=== PATIENT | male | born 1960 | race Caucasian/White ===

== ENCOUNTER 2019-01-30 11:05 | Emergency (ER) | payer BC ==
--- OUTSIDE RECORDS SUMMARY | 2019-01-30 11:23 | XMS REPORT | Clinical Summary ---
:1960 Author Organization [facility] Address [address] [place] [address] Care Team Providers Name Role Phone Asked, No Pcp Primary Care Provider Unavailable Allergies No Known Allergies Medications Medication Sig Dispensed Refills Start Date End Date Status metoprolol succinate Take 25 mg by 0 Active XL (TOPROL-XL) 25 mg mouth 2 (two) 24 hr tablet times a day. aspirin (ECOTRIN) 81 Take 81 mg by 0 Active MG enteric coated mouth daily. tablet lisinopril Take 5 mg by mouth 0 Active (PRINIVIL,ZESTRIL) 5 daily. mg tablet atorvastatin Take 80 mg by 0 Active (LIPITOR) 80 MG mouth nightly. tablet levothyroxine Take 50 mcg by 0 Active (SYNTHROID, LEVOXYL) mouth every 50 mcg tablet morning. multivitamin Take 1 tablet by 0 Active (THERAGRAN) tablet mouth daily. fluticasone-vilanter Inhale 1 0 Active ol (BREO ELLIPTA) inhalations daily. 200-25 mcg/dose blister with device powder for inhalation ticagrelor Take 1 tablet (90 60 tablet 0 02/14/2018 03/16/2018 (BRILINTA) 90 mg mg total) by mouth tablet 2 (two) times a day for 30 days. Active Problems Problem Noted Date Coronary artery disease 02/13/2018 Encounters Date Type Specialty Care Team Description 02/13/2018 Surgery Procedural Robson Bauman Cv left heart cath w Cardiology MD Regino lv gram cors [90916 (CPT)] 02/13/2018 - Hospital Encounter Cardiology Robson Bauman Coronary artery 02/14/2018 MD Regino disease involving [place] coronary artery of [place] heart with unstable angina pectoris (Primary Dx) after 01/29/2018 Social History Tobacco Use Types Packs/Day Years Used Date Former Smoker Smokeless Tobacco: Former User Comments: Quit 20 years ago Alcohol Use Drinks/Week oz/Week Comments Yes socially Sex Assigned at Date Recorded Not on file Job Start Date Occupation Industry Not on file Not on file Not on file Travel History Travel Start Travel End No recent travel history available. Last Filed Vital Signs Vital Sign Reading Time Taken Blood Pressure 136/80 02/14/2018 12:33 PM CDT Pulse 76 02/14/2018 12:33 PM CDT Temperature 36.6 C (97.8 F) 02/14/2018 12:33 PM CDT Respiratory Rate 18 02/14/2018 12:33 PM CDT Oxygen Saturation 97% 02/14/2018 12:33 PM CDT Inhaled Oxygen Concentration - - Weight 98 kg (216 lb) 02/14/2018 6:23 AM CDT Height 182.9 cm (6') 02/13/2018 7:35 AM CDT Body Mass Index 29.29 02/14/2018 6:23 AM CDT Plan of Treatment Not on file Implants Implanted Type Area Automatic Grinder Operator Device Shelf Model / Identifier Expiration Serial / Date Lot Stent System 3.5 X 12mm Resolute [place] [facility] Coronary - [id number] Coronary N/A: N/A [employer] (RIS) [facility] - [id number] / Implanted: 02/13/2018 (Quantity not on file) Stents CARDIAC RYHTYM / MGMT Procedures Procedure Name Priority Date/Time Associated Comments Diagnosis ZZESTIMATED GFR Routine 02/14/2018 2:32 Results for this AM CDT procedure are in the results section. BASIC METABOLIC PANEL Routine 02/14/2018 2:32 Results for this AM CDT procedure are in the results section. HC COMPLETE BLD COUNT Routine 02/14/2018 1:34 Results for this W/AUTO DIFF AM CDT procedure are in the results section. ECG PRE/POST OP STAT 02/13/2018 11:37 Results for this AM CDT procedure are in the results section. CV LEFT INTERNAL Routine 02/13/2018 10:42 Results for this MAMMARY GRAFT AM CDT procedure are in the results section. CV BYPASS GRAFT LEFT Routine 02/13/2018 10:42 Results for this HEART AM CDT procedure are in the results section. CV PCI STENT Routine 02/13/2018 10:42 Results for this AM CDT procedure are in the results section. CV LEFT HEART CATH LV Routine 02/13/2018 10:42 Results for this GRAM WITH CORS AM CDT procedure are in the results section. ECG PRE/POST OP Routine 02/13/2018 8:07 Results for this AM CDT procedure are in the results section. ZZESTIMATED GFR Routine 02/13/2018 7:20 Results for this AM CDT procedure are in the results section. HC COMPLETE BLD COUNT Routine 02/13/2018 7:20 Results for this W/AUTO DIFF AM CDT procedure are in the results section. BASIC METABOLIC PANEL Routine 02/13/2018 7:20 Results for this AM CDT procedure are in the results section. after 01/29/2018 Results Estimated GFR (02/14/2018 2:32 AM CDT)Only the most recent of2 resultswithin the time period is included. GFR Non Af Amer 87 mL/min/1.73 m2 [facility] DEPARTMENT OF PATHOLOGY AND GENOMIC MEDICINE GFR Af Amer >90 mL/min/1.73 m2 [facility] DEPARTMENT OF Comment: PATHOLOGY AND GENOMIC Chronic kidney disease: <60 mL/min/1.73m2 MEDICINE Kidney failure: <15 mL/min/1.73m2 The estimated GFR is calculated from the IDMS-traceable Modification of Diet in Renal Disease Equation. The accuracy of the calculation is poor when the creatinine is normal. Calculated values >90 mL/min/1.73m2 are not reported. This equation has not been validated in children (<18 years), women, the elderly (>70 years), or ethnic groups other than Caucasians and Americans. Specimen Plasma specimen Performing Organization Address City/State/Zipcode Phone Number [facility] DEPARTMENT OF PATHOLOGY AND [address] [place] [address] [facility] [employer] Basic metabolic panel (02/14/2018 2:32 AM CDT)Only the most recent of2 resultswithin the time period is included. Sodium 140 135 - 148 mEq/L [facility] DEPARTMENT OF PATHOLOGY AND GENOMIC MEDICINE Potassium 3.9 3.5 - 5.0 mEq/L [facility] DEPARTMENT OF PATHOLOGY AND GENOMIC MEDICINE Chloride 102 98 - 112 mEq/L [facility] DEPARTMENT OF PATHOLOGY AND GENOMIC MEDICINE CO2 20 (L) 24 - 31 mEq/L [facility] DEPARTMENT OF PATHOLOGY AND GENOMIC MEDICINE Anion gap 18 (H) 7 - 15 mEq/L [facility] DEPARTMENT OF PATHOLOGY Comment: AND [employer] MEDICINE Starting from February , anion gap calculation no longer incorporates potassium. Please note the change. BUN 13 6 - 20 mg/dL [facility] DEPARTMENT OF PATHOLOGY AND GENOMIC MEDICINE Creatinine 0.9 0.7 - 1.2 mg/dL [facility] DEPARTMENT OF PATHOLOGY AND GENOMIC MEDICINE Glucose 92 65 - 99 mg/dL [facility] DEPARTMENT OF PATHOLOGY AND GENOMIC MEDICINE Calcium 9.0 8.3 - 10.2 mg/dL [facility] DEPARTMENT OF PATHOLOGY AND GENOMIC MEDICINE Specimen Plasma specimen Performing Organization Address City/State/Zipcode Phone Number [facility] DEPARTMENT OF PATHOLOGY AND [address] [place] [address] GENOMIC MEDICINE CBC with platelet and differential (02/14/2018 1:34 AM CDT)Only the most recent of2 resultswithin the time period is included. WBC 9.08 4.50 - 11.00 k/uL [facility] DEPARTMENT OF PATHOLOGY AND GENOMIC MEDICINE RBC 4.71 4.40 - 6.00 m/uL [facility] DEPARTMENT OF PATHOLOGY AND GENOMIC MEDICINE HGB 15.2 14.0 - 18.0 g/dL [facility] DEPARTMENT OF PATHOLOGY AND GENOMIC MEDICINE HCT 45.4 41.0 - 51.0 % [facility] DEPARTMENT OF PATHOLOGY AND GENOMIC MEDICINE MCV 96.4 82.0 - 100.0 fL [facility] DEPARTMENT OF PATHOLOGY AND GENOMIC MEDICINE MCH 32.3 27.0 - 34.0 pg [facility] DEPARTMENT OF PATHOLOGY AND GENOMIC MEDICINE MCHC 33.5 31.0 - 37.0 g/dL [facility] DEPARTMENT OF PATHOLOGY AND GENOMIC MEDICINE RDW - SD 43.8 37.0 - 55.0 fL [facility] DEPARTMENT OF PATHOLOGY AND GENOMIC MEDICINE MPV 10.7 8.8 - 13.2 fL [facility] DEPARTMENT OF PATHOLOGY AND GENOMIC MEDICINE Platelet count 190 150 - 400 k/uL [facility] DEPARTMENT OF PATHOLOGY AND GENOMIC MEDICINE Nucleated RBC 0.00 /100 WBC [facility] DEPARTMENT OF PATHOLOGY AND GENOMIC MEDICINE Neutrophils 66.2 39.0 - 69.0 % [facility] DEPARTMENT OF PATHOLOGY AND GENOMIC MEDICINE Lymphocytes 21.5 (L) 25.0 - 45.0 % [facility] DEPARTMENT OF PATHOLOGY AND GENOMIC MEDICINE Monocytes 10.1 (H) 0.0 - 10.0 % [facility] DEPARTMENT OF PATHOLOGY AND GENOMIC MEDICINE Eosinophils 1.4 0.0 - 5.0 % [facility] DEPARTMENT OF PATHOLOGY AND GENOMIC MEDICINE Basophils 0.4 0.0 - 1.0 % [facility] DEPARTMENT OF PATHOLOGY AND GENOMIC MEDICINE Immature granulocytes 0.4Comment: 0.0 - 1.0 % [facility] DEPARTMENT OF "Immature PATHOLOGY AND GENOMIC granulocytes" MEDICINE (promyelocytes, myelocytes, metamyelocytes) Specimen Blood Performing Organization Address City/[facility] Phone Number [facility] DEPARTMENT OF PATHOLOGY AND [address] [place] [address] GENOMIC MEDICINE ECG Pre/Post Op (STAT) (02/13/2018 11:37 AM CDT)Only the most recent of2 resultswithin the time period is included. Ventricular rate 81 [facility] Atrial rate 81 [facility] VT interval 142 [facility] QRSD interval 90 [facility] QT interval 396 [facility] QTC interval 460 H MUSE P axis 1 69 [facility] QRS axis 1 72 [facility] T wave axis 34 [facility] MUSE EKG impression Normal sinus rhythm-Normal ECG-In automated [facility] MUSE comparison with ECG of 13-FEB-2018 08:07,-No significant change was found- Performing Organization Address City/[facility] Phone Number [facility] MUSE [address] [place] [address] Cv laborer vineyard procedure (02/13/2018 10:42 AM CDT) Cath EF Estimated 60 % [facility] Narrative Performed At Findings: [facility] LAD occluded in the mid segment. LCx with severe stenosis proximally. RCA occluded proximally Procedure Details Attending: Dr. Bauman Interventional Fellow: Noah Bautista MD EQUIPMENT/ANTICOAGULATION: Right Common Femoral Artery 6F Sheath [id number] Catheter Luge coronary wire Anticoagulation:Angiomax bolus and Infusion with ACT >250 sec prior to procedure PROCEDURAL DETAILS: The SVG was engaged with the [id number] Catheter and a Luge coronary wire was advanced into the distal LCx. The lesion in the proximal SVG was stented with a 3.5x12mm Resolute Harshal CHARIS at 16atm. Final angiography revealed no evidence of dissection or perforation; there was VALERIO 3 flow and 0% residual stenosis. HEMOSTASIS: Manual Pressure ADDITIONAL POST-PROCEDURE MEDICATIONS: Aspirin 324 mg Ticagrelor 180 mg BID PLAN: 1. ASA 81mg daily 2. Ticagrelor 90mg BID . 3. Cardiac medical therapy and aggressive risk factor modification. Cardiac rehabilitation. 4. Transferred in stable condition Performing Organization Address City/State/Zipcode Phone Number [facility] [address] [place] [address] after 01/29/2018 Insurance Payer Benefit Plan / Group Subscriber ID Type Phone Address BCBS BCBS CHOICE PPO/F[employer]ERAL EMPL PPO xxxxxxxxxxxx PPO Advance Directives Patient has advance care planning documents on file. For more information, please contact:John [id number] [place] [address]
[2019-01-30] MEDS ORDERED: ALBUTEROL 2.5 MG/3 ML NEB SOL ONE (11:39)
[2019-01-30] MEDS ORDERED: MAGNESIUM OXIDE 400 MG TAB ONE (12:05)
[2019-01-30] MEDS ORDERED: CETIRIZINE HCL 5 MG TABLET ONE (12:05)
[2019-01-30] MEDS ORDERED: FAMOTIDINE 20 MG TAB ONE (12:06)
[2019-01-30] MEDS ORDERED: predniSONE 20 MG TAB ONE (12:06)
--- NOTE | 2019-01-30 12:41 | RAD REPORT ---
EXAM DESCRIPTION: RAD - Chest Pa And Lat (2 Views) - 01/30/2019 12:34 pm CLINICAL HISTORY: Shortness of breath COMPARISON: December 2015 TECHNIQUE: PA and lateral views of the chest were obtained. FINDINGS: The lungs are clear. Interstitial markings are similar to comparison. Sternotomy wires ar e in place. Heart size is normal and central vasculature is within normal limits. No pleural effusio n or pneumothorax seen. No acute bony finding noted. No aortic abnormality. IMPRESSION: No acute cardiopulmonary process. No significant interval change.
--- NOTE | 2019-01-30 12:49 | ER ---
Nurse's Notes [facility] Name: Ayan Wynne Age: 58 yrs Sex: Male : 1960 Arrival Date: 01/30/2019 Time: 11:07 Bed 5 Private MD: Diagnosis: Bronchitis, not specified as acute or chronic Presentation: 01/30 11:12 Presenting complaint: Patient states: cough, SOB, wheezing x 1 month has been out of sv his inhaler for a month. c/o sinus pain x 3 months. Transition of care: patient was not received from another setting of care. Onset of symptoms is unknown. Care prior to arrival: None. 11:12 Method Of Arrival: Ambulatory sv 11:12 Acuity: SUSHMA 3 sv 11:30 Risk Assessment: Do you want to hurt yourself or someone else? Patient reports no bp desire to harm self or others. Initial Sepsis Screen: Does the patient meet any 2 criteria? No. Patient's initial sepsis screen is negative. Does the patient have a suspected source of infection? No. Patient's initial sepsis screen is negative. Triage Assessment: 11:30 Headache History: The patient has had previous headaches and this one is similar to bp previous episodes. General: Appears in no apparent distress. comfortable, Behavior is calm, cooperative, appropriate for age. Pain: Pain currently is 4 out of 10 on a pain scale. Pain began gradually, Also complains of no other associated symptoms. Historical: - Allergies: 11:13 No Known Allergies; sv - PMHx: 11:13 None; sv - PSHx: 11:13 Quadruple bypass; sv - Immunization history:: Adult Immunizations up to date. - Social history:: Smoking status: Patient/guardian denies using tobacco. - Ebola Screening: : No symptoms or risks identified at this time. Screenin:15 Abuse screen: Denies threats or abuse. Denies injuries from another. Nutritional bp screening: No deficits noted. Tuberculosis screening: No symptoms or risk factors identified. Fall Risk None identified. Assessment: 11:15 General: Appears in no apparent distress. comfortable, Behavior is calm, cooperative, bp appropriate for age. Pain: Complains of pain in forehead, right cheek and left cheek. Neuro: Level of Consciousness is awake, alert, obeys commands, Oriented to person, place, time, situation, Appropriate for age. Cardiovascular: No deficits noted. Respiratory: Breath sounds with wheezes bilaterally. GI: No signs and/or symptoms were reported involving the gastrointestinal system. : No signs and/or symptoms were reported regarding the genitourinary system. EENT: Reports pain. Derm: No deficits noted. Musculoskeletal: Circulation, motion, and sensation intact. Range of motion: intact in all extremities. 12:00 Reassessment: XRAY PENDING, RESP IMPROVED AFTER NEB. bp 13:18 Reassessment: PT D/C HOME AMBULATORY, DX WITH BRONCHITIS. bp Vital Signs: 11:13 BP 153 / 91; Pulse 91; Resp 22; Temp 97.5; Pulse Ox 96% ; Weight 95.71 kg; Height 6 ft. sv 0 in. (182.88 cm); Pain 2/10; 12:03 BP 133 / 89; Pulse 85; Resp 18; Pulse Ox 93% on R/A; bp 13:18 BP 123 / 81; Pulse 80; Resp 14; Pulse Ox 95% ; bp 11:13 Body Mass Index 28.62 (95.71 kg, 182.88 cm) sv ED Course: 11:07 Patient arrived in ED. rg4 11:13 Triage completed. sv 11:15 Stu Dunlap, RN is Primary Nurse. bp 11:15 Arm band placed on. bp 11:15 Patient has correct armband on for positive identification. Bed in low position. Call bp light in reach. Side rails up X2. 11:22 Erlinda Prieto [facility]-C [facility]. snw 11:22 Marlo Atkins MD is Attending Physician. snw 12:34 X-ray completed. Patient tolerated procedure well. Patient moved back from radiology. mh1 12:34 Chest Pa And Lat (2 Views) XRAY In Process Unspecified. EDMS 13:18 No provider procedures requiring assistance completed. Patient did not have IV access bp during this emergency room visit. Administered Medications: 11:31 Drug: Albuterol 2.5 mg Route: Inhalation; bp 11:45 Drug: predniSONE 60 mg Route: PO; bp 13:20 Follow up: Response: No adverse reaction bp 11:45 Drug: Pepcid 20 mg Route: PO; bp 13:20 Follow up: Response: No adverse reaction bp 11:45 Drug: ZyrTEC - Cetirizine 10 mg Route: PO; bp 13:20 Follow up: Response: No adverse reaction bp 11:45 Drug: Magnesium 400 mg Route: PO; bp 13:21 Follow up: Response: No adverse reaction bp Outcome: 12:48 Discharge ordered by MD. leone 13:18 Discharged to home ambulatory. bp 13:18 Condition: stable 13:18 Discharge instructions given to patient, Instructed on discharge instructions, follow up and referral plans. medication usage, Demonstrated understanding of instructions, follow-up care, medications, Prescriptions given X 4. 13:21 Patient left the ED. bp Signatures: Dispatcher [employer] Mary Carmen Stone, RN RN sv Erlinda Prieto, EMPLOYEE BENEFITS ADMINISTRATOR-C EMPLOYEE BENEFITS ADMINISTRATOR-[employer] Ana Rainey 1 Sandra Paz 4 Stu Dunlap RN RN bp Corrections: (The following items were deleted from the chart) 11:14 11:13 BP 153 / 91; Pulse 91bpm; Resp 20bpm; Pulse Ox 96%; Temp 97.5F; 95.71 kg; Height sv 6 ft. 0 in.; BMI: 28.6; Pain 2/10; sv
--- NOTE | 2019-01-30 12:49 | EDPHYS ---
Physician Documentation [facility] Name: Ayan Wynne Age: 58 yrs Sex: Male : 1960 Arrival Date: 01/30/2019 Time: 11:07 Bed 5 Private MD: ED Physician Marlo Atkins HPI: 01/30 11:31 This 58 yrs old Male presents to ER via Ambulatory with complaints of Sinus snw Pain, Shortness Of Breath, Cough. 11:31 The patient or guardian reports airway noise, cough, described as moderate, difficulty snw breathing. Onset: The symptoms/episode began/occurred 4 week(s) ago, and became persistent. Severity of symptoms: At their worst the symptoms were moderate. Associated signs and symptoms: Pertinent positives: sinus congestion. The patient has experienced similar episodes in the past. Pt was given a round of Amoxil in Oct. Has been using neti-pot without relief. Historical: - Allergies: 11:13 No Known Allergies; sv - PMHx: 11:13 None; sv - PSHx: 11:13 Quadruple bypass; sv - Immunization history:: Adult Immunizations up to date. - Social history:: Smoking status: Patient/guardian denies using tobacco. - Ebola Screening: : No symptoms or risks identified at this time. ROS: 11:30 Constitutional: Negative for fever, chills, and weight loss, Eyes: Negative for injury, snw pain, redness, and discharge, Neck: Negative for injury, pain, and swelling, Cardiovascular: Negative for chest pain, palpitations, and edema, Abdomen/GI: Negative for abdominal pain, nausea, vomiting, diarrhea, and constipation, Back: Negative for injury and pain, : Negative for injury, bleeding, discharge, and swelling, MS/Extremity: Negative for injury and deformity, Skin: Negative for injury, rash, and discoloration, Neuro: Negative for headache, weakness, numbness, tingling, and seizure. 11:30 ENT: Positive for sinus congestion. 11:30 Respiratory: Positive for cough, shortness of breath, wheezing. Exam: 11:29 Head/Face: Normocephalic, atraumatic. Eyes: Pupils equal round and reactive to light, snw extra-ocular motions intact. Lids and lashes normal. Conjunctiva and sclera are non-icteric and not injected. Cornea within normal limits. Periorbital areas with no swelling, redness, or edema. ENT: Nares patent. No nasal discharge, no septal abnormalities noted. Tympanic membranes are normal and external auditory canals are clear. Oropharynx with no redness, swelling, or masses, exudates, or evidence of obstruction, uvula midline. Mucous membranes moist. Neck: Trachea midline, no thyromegaly or masses palpated, and no cervical lymphadenopathy. Supple, full range of motion without nuchal rigidity, or vertebral point tenderness. No Meningismus. Chest/axilla: Normal chest wall appearance and motion. Nontender with no deformity. No lesions are appreciated. Cardiovascular: Regular rate and rhythm with a normal S1 and S2. No gallops, murmurs, or rubs. Normal PMI, no JVD. No pulse deficits. 11:29 Abdomen/GI: Soft, non-tender, with normal bowel sounds. No distension or tympany. No guarding or rebound. No evidence of tenderness throughout. Back: No spinal tenderness. No costovertebral tenderness. Full range of motion. Skin: Warm, dry with normal turgor. Normal color with no rashes, no lesions, and no evidence of cellulitis. MS/ Extremity: Pulses equal, no cyanosis. Neurovascular intact. Full, normal range of motion. Neuro: Awake and alert, GCS 15, oriented to person, place, time, and situation. Cranial nerves II-XII grossly intact. Motor strength 5/5 in all extremities. Sensory grossly intact. Cerebellar exam normal. Normal gait. 11:29 Constitutional: The patient appears alert, awake. 11:29 Respiratory: mild respiratory distress is noted, moderate respiratory distress is noted, Respirations: intercostal retractions, shallow respirations, Breath sounds: wheezing: expiratory that is moderate, that is severe, is heard diffusely, dry, tight cough. 12:47 Respiratory: Pt states he is breathing much easier. No distress. snw Vital Signs: 11:13 BP 153 / 91; Pulse 91; Resp 22; Temp 97.5; Pulse Ox 96% ; Weight 95.71 kg; Height 6 ft. sv 0 in. (182.88 cm); Pain 2/10; 12:03 BP 133 / 89; Pulse 85; Resp 18; Pulse Ox 93% on R/A; bp 13:18 BP 123 / 81; Pulse 80; Resp 14; Pulse Ox 95% ; bp 11:13 Body Mass Index 28.62 (95.71 kg, 182.88 cm) sv MDM: 11:22 Patient medically screened. snw 12:49 Data reviewed: vital signs, nurses notes. Data interpreted: Pulse oximetry: on room air snw is 93 %. Interpretation: acceptable. Counseling: I had a detailed discussion with the patient and/or guardian regarding: the historical points, exam findings, and any diagnostic results supporting the discharge/admit diagnosis, radiology results, the need for outpatient follow up, to return to the emergency department if symptoms worsen or persist or if there are any questions or concerns that arise at home. Response to treatment: the patient's symptoms have markedly improved after treatment. Special discussion: I have referred the patient to see his PCP for further evaluation of high blood pressure. Based on the history and exam findings, there is no indication for further emergent testing or inpatient evaluation. I discussed with the patient/guardian the need to see the primary care provider for further evaluation of the symptoms. 01/30 11:14 Order name: Chest Pa And Lat (2 Views) XRAY; Complete Time: 12:43 sv Administered Medications: 11:31 Drug: Albuterol 2.5 mg Route: Inhalation; bp 11:45 Drug: predniSONE 60 mg Route: PO; bp 13:20 Follow up: Response: No adverse reaction bp 11:45 Drug: Pepcid 20 mg Route: PO; bp 13:20 Follow up: Response: No adverse reaction bp 11:45 Drug: ZyrTEC - Cetirizine 10 mg Route: PO; bp 13:20 Follow up: Response: No adverse reaction bp 11:45 Drug: Magnesium 400 mg Route: PO; bp 13:21 Follow up: Response: No adverse reaction bp Disposition: 14:16 Co-signature as Attending Physician, Marlo Atkins MD I agree with the assessment and jerson plan of care. Chart complete. Disposition: 01/30/19 12:48 Discharged to Home. Impression: Bronchitis, not specified as acute or chronic. - Condition is Stable. - Discharge Instructions: Acute Bronchitis, Adult, Cool Mist Vaporizer, Cough, Adult. - Prescriptions for Nasonex 50 mcg/actuation Nasal spray,non- aerosol - spray 2 spray by INTRANASAL route once daily; 1 Cartridge. Zyrtec 10 mg Oral Tablet - take 1 tablet by ORAL route once daily As needed; 20 tablet. Tessalon Perles 100 mg Oral Capsule - take 1 capsule by ORAL route every 8 hours As needed; 15 capsule. Prednisone 20 mg Oral Tablet - take 2 tablet by ORAL route once daily for 5 days; 10 tablet. Albuterol Sulfate 90 mcg/actuation - inhale 1-2 puff by INHALATION route every 4-6 hours; 1 Inhaler. Pepcid 20 mg Oral Tablet - take 1 tablet by ORAL route once daily for 10 days; 10 tablet. - Work release form, Medication Reconciliation Form, Thank You Letter, Antibiotic Education, Prescription Opioid Use form. - Follow up: Private Physician; When: 2 - 3 days; Reason: Recheck today's complaints, Continuance of care, Re-evaluation by your physician. Follow up: Emergency Department; When: As needed; Reason: Worsening of condition. Signatures: Dispatcher [employer] EDMary Carmen Linares RN RN sv Anderson, Corey, MD MD cha Therrien, Shelly, ASSIGNMENT AGENT-C ASSIGNMENT AGENT-Csnw Stu Dunlap RN RN bp Corrections: (The following items were deleted from the chart) 13:21 12:48 01/30/2019 12:48 Discharged to Home. Impression: Bronchitis, not specified as bp acute or chronic. Condition is Stable. Forms are Medication Reconciliation Form, Thank You Letter, Antibiotic Education, Prescription Opioid Use. Follow up: Private Physician; When: 2 - 3 days; Reason: Recheck today's complaints, Continuance of care, Re-evaluation by your physician. Follow up: Emergency Department; When: As needed; Reason: Worsening of condition. snw
== END 2019-01-30 13:21 | disposition home or self-care (01) ==
LOC: ER 11:05
DX: J40 Bronchitis, not specified as acute or chronic (principal)
CPT/HCPCS: 71046; 99284; J7512